=== PATIENT | male | born 1995 | race Caucasian/White ===

== ENCOUNTER 2018-04-19 16:41 | Observation (INO) | payer OTHER ==
[2018-04-19 17:16] LABS: Glucose,Whole Blood 85 mg/dL (75-99)
--- NOTE | 2018-04-19 18:38 | ED ---
General Adult HPI - General Chief complaint: Altered Mental Status Stated complaint: Mental Health Time Seen by Provider: 04/19/18 16:55 Source: RN/MD, EMS, RN notes reviewed Mode of arrival: EMS Limitations: altered mental status - History of Present Illness Initial comments: 23-year-old male presents to the emergency department for a chief complaint of altered mental status x 1 day. Patient was transferred here from [facility]. Patient's grandmother states that he went camping all weekend and was seemingly fine. She states he woke up today and also seemed fine. Patient's grandmother states that his sister started to notice he was slurring his words and they became concerned and brought him to the hospital. At [facility], chest x-ray and CT brain was normal. White count was elevated at 15. Lactic within normal limits at 1.8. Blood culture sent. Urine was positive for cannabinoids and TCAs. Patient takes Zoloft at home. Urine looks clear. Glucose 85. Patient unable to answer questions at this time but is responsive to his name as well as pain. Patient has no other complaints at this time including shortness of breath, chest pain, abdominal pain, nausea or vomiting, headache, or visual changes. - Related Data Home Medications Medication Instructions Recorded Confirmed No Known Home Medications 04/19/18 04/19/18 Allergies Allergy/AdvReac Type Severity Reaction Status Date / Time amoxicillin [Amoxicillin] Allergy Anaphylaxis Verified 08/07/16 21:50 Review of Systems ROS Statement: Those systems with pertinent positive or pertinent negative responses have been documented in the HPI. ROS Other: All systems not noted in ROS Statement are negative. Past Medical History Additional Past Medical History / Comment(s): right hand fracture X3. History of Any Multi-Drug Resistant Organisms: None Reported Past Surgical History: Appendectomy, Orthopedic Surgery Additional Past Surgical History / Comment(s): oral surgery Past Psychological History: ADD/ADHD Smoking Status: Current every day smoker Past Alcohol Use History: Occasional Past Drug Use History: Marijuana General Exam Limitations: altered mental status General appearance: in no apparent distress Head exam: Present: atraumatic, normocephalic, normal inspection Eye exam: Present: PERRL, EOMI. Absent: scleral icterus, conjunctival injection , periorbital swelling, periorbital tenderness ENT exam: Present: normal exam, mucous membranes moist Respiratory exam: Present: normal lung sounds bilaterally. Absent: respiratory distress, wheezes, rales, rhonchi, stridor Cardiovascular Exam: Present: regular rate, normal rhythm, normal heart sounds. Absent: systolic murmur, diastolic murmur, rubs, gallop, clicks GI/Abdominal exam: Present: soft, normal bowel sounds. Absent: distended, tenderness, guarding, rebound, rigid Neurological exam: Present: altered (patient responds to pain and his name but does not communicate back) Course Vital Signs 04/19/18 16:56 Temperature 98.3 F Pulse Rate 115 H Respiratory 16 Rate Blood Pressure 141/90 O2 Sat by Pulse 99 Oximetry Medical Decision Making - Medical Decision Making 23-year-old male presents to the emergency department for a chief complaint of altered mental status times one day. According to RN, grandmother states that he was camping all weekend and seemed fine. She states he seemed fine this morning but they started noticing he was slurring his words so they took him to [facility]. [facility] did a medical workup on him. Urine was positive for cannabinoids and TCAs. Patient has a white count of 15. Chest x-ray and urinalysis negative. Psych was consulted but did not feel comfortable evaluating him and altered mental status. Patient will be admitted to Dr. Orlando for further workup and management. - Lab Data Lab Results 04/19/18 Range/Units 17:06 POC Glucose (mg/dL) 85 (75-99) mg/dL POC Glu Senior Lead Project Manager ID Bailey Cano Disposition Clinical Impression: Altered mental status Disposition: ADMITTED IP TO THIS HOSP Condition: Good Instructions: Altered Mental Status (ED) Is patient prescribed a controlled substance at d/c from ED?: No Referrals: Oh Orlando MD [Primary Care Provider] - 1-2 days Time of Disposition: 20:53
[2018-04-19] MEDS ORDERED: NALOXONE 0.4 MG/ML 1 ML VIAL IV PRN (20:54)
[2018-04-19] MEDS: SODIUM CHLORIDE 0.9% 1,000 ML IV SCH (21:17)
[2018-04-19] MEDS ORDERED: HALOPERIDOL LACTATE 5 MG/ML 1 ML VIAL IM PRN (23:22)
[2018-04-19 23:41] VITALS: BMI 23.4
[2018-04-20] MEDS: SODIUM CHLORIDE 0.9% 1,000 ML IV SCH ×2 (08:06→19:28)
--- NOTE | 2018-04-20 15:04 | PN ---
PROGRESS NOTE DATE OF SERVICE: 04/20/2018 CHIEF COMPLAINT: Altered mental status and overdose with major depression and suicidal personality. HISTORY OF PRESENT ILLNESS: This gentleman is now awake, alert, and admits to having taken Zoloft and Vistaril. PHYSICAL EXAM: Vital signs are normal. Chest is clear. Cardiac exam is normal. Abdomen is soft, nontender. IMPRESSION: 1. Major depression. 2. Suicidal personality. 3. Drug overdose. PLAN: Continue suicide precautions and await recommendations from psychiatry. MMODL / IJN: [id number] /
--- NOTE | 2018-04-20 15:13 | HP ---
HISTORY AND PHYSICAL CHIEF COMPLAINT: Altered mental status, overdose, lethargy and major depression. HISTORY OF PRESENT ILLNESS: This 23-year-old male was released from [facility] about 2 weeks ago after a suicide attempt. He then was taken on the day of admission here to [facility] in the ER where he came in with lethargy, confusion, agitation and was felt that this was related to drug ingestion. He apparently had was on Vistaril and Zoloft and may have ingested these. Because there is no psychiatric service at [facility], he was transferred here. He was admitted for suicide watch, psychiatric evaluation and medical stability after the overdose. REVIEW OF SYSTEMS: Is not reliably obtained. Past medical history, family history, personal and social histories are not reliably obtained. He is known to be allergic to AMOXICILLIN. Remainder of his history is unremarkable. He does smoke. PHYSICAL EXAM: Blood pressure 118/68, pulse of 98,respirations of 32 and he is afebrile. In general, appeared to be well-developed, well-nourished, in no acute distress but he was agitated. Skin was very hot and dry. Head, ears, eyes, nose, mouth, and throat were normal except for dry mucous membranes. Neck was supple. Pupils equal, round, reactive and gaze is conjugate. Chest is clear. Cardiac exam demonstrated tachycardia with no murmurs. The abdomen is flat, soft, nontender without visceromegaly or masses. Bowel sounds present. Extremities are normal. Neurologically, other than the lethargy and agitation, he is intact. IMPRESSION: 1. Mental status changes. 2. Drug ingestion overdose. 3. Major depression. 4. History of suicidal attempt. PLAN: 1. Bed rest. 2. IV fluids. 3. Suicide precautions. 4. Psych consult. MMODL / IJN: [id number] /
[2018-04-20] MEDS ORDERED: hydrOXYzine PAMOATE 25 MG CAP PO SCH (16:00)
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
[2018-04-20] MEDS: FAMOTIDINE 20 MG TAB PO SCH (20:07)
[2018-04-20] MEDS ORDERED: traZODone HCL 50 MG TAB PO SCH (21:00)
[2018-04-21] MEDS: SODIUM CHLORIDE 0.9% 1,000 ML IV SCH ×2 (05:37→13:45)
[2018-04-21 05:44] VITALS: BP 117/75; PULSE 76; RESP 16; TEMP 98.6
[2018-04-21] MEDS ORDERED: SERTRALINE 50 MG TAB PO SCH (09:00)
[2018-04-21] MEDS: FAMOTIDINE 20 MG TAB PO SCH (09:43)
--- NOTE | 2018-04-21 16:47 | DS ---
DISCHARGE SUMMARY CHIEF COMPLAINT: Major depression and suicide attempt with aggressive behavior. HISTORY OF PRESENT ILLNESS AND PHYSICAL EXAM: Details of this man's history and physical can be found in the initial workup. LABORATORY STUDIES: While he was in a hospital he had laboratory studies, details of which can be found in the laboratory section of his chart. COURSE IN HOSPITAL: After admission he was placed on bedrest, started on intravenous fluids and was placed on suicide precautions. He was seen by Psychiatry who recommended that he be committed and he will be transferred to [facility]. FINAL DIAGNOSES: 1. Drug ingestion overdose. 2. Major depression. 3. Aggressive personality disorder. OPERATIONS: None. CONSULTATIONS: Psychiatry. He is improved. MMODL / IJN: [id number] /
== END 2018-04-21 18:15 ==
LOC: EC 16:41 → 5MS5E 20:54
PROVIDERS: ADMIT Family Medicine; ATTEND Family Medicine
DX: T43.592A Poisoning by other antipsychotics and neuroleptics, intentional self-harm, initial encounter (principal); T43.222A Poisoning by selective serotonin reuptake inhibitors, intentional self-harm, initial encounter; F32.9 Major depressive disorder, single episode, unspecified; F60.3 Borderline personality disorder; R41.82 Altered mental status, unspecified; D72.829 Elevated white blood cell count, unspecified; F90.9 Attention-deficit hyperactivity disorder, unspecified type; Z91.5 Personal history of self-harm; Z72.89 Other problems related to lifestyle; F17.200 Nicotine dependence, unspecified, uncomplicated; Z79.899 Other long term (current) drug therapy; Z88.0 Allergy status to penicillin; Z87.81 Personal history of (healed) traumatic fracture
CPT/HCPCS: 99285 ×2; 36415; G0378 ×3

== ENCOUNTER 2018-09-07 00:53 | Inpatient (IN) | payer MEDICAID ==
[2018-09-07] MEDS ORDERED: MAGNESIUM HYDROXIDE 2,400 MG/10 ML CUP PO PRN (01:29)
[2018-09-07] MEDS ORDERED: ZIPRASIDONE 20 MG VIAL IM PRN (01:29)
[2018-09-07] MEDS ORDERED: MAG HYDROX/AL HYDROX/SIMETH 30 ML CUP PO PRN (01:29)
[2018-09-07 03:29] VITALS: BMI 25.0
[2018-09-07] MEDS ORDERED: PNEUMOCOCCAL VACC-PNEUMOVAX 23 25 MCG/0.5 ML VIAL IM ONE (09:00)
[2018-09-07] MEDS ORDERED: NICOTINE 21MG/24HR PATCH TRANSDERM SCH (09:00)
[2018-09-07 11:20] LABS: Basophils % (A) 0 %; Eosinophils # (A) 0.2 k/uL (0-0.7); Eosinophils % (A) 3 %; HCT 45.7 % (39.0-53.0); HGB 14.2 gm/dL (13.0-17.5); Lymphocytes # (A) 1.5 k/uL (1.0-4.8); Lymphocytes % (A) 17 %; MCH 29.7 pg (25.0-35.0); MCV 95.7 fL (80.0-100.0); Monocytes # (A) 0.3 k/uL (0-1.0); Monocytes % (A) 4 %; Neutrophils # (A) 6.5 k/uL (1.3-7.7); Neutrophils % (A) 76 %; Platelet Count 271 k/uL (150-450); RBC 4.77 m/uL (4.30-5.90); RDW 13.5 % (11.5-15.5); WBC 8.6 k/uL (3.8-10.6)
[2018-09-07 11:48] LABS: ALT 34 U/L (21-72); AST 20 U/L (17-59); Albumin 4.5 g/dL (3.5-5.0); Alkaline Phosphatase 54 U/L (38-126); Anion Gap 8 mmol/L; Blood Urea Nitrogen 13 mg/dL (9-20); Calcium 9.3 mg/dL (8.4-10.2); Carbon Dioxide 27 mmol/L (22-30); Chloride 105 mmol/L (98-107); Cholesterol 216 mg/dL (<200); Glucose 82 mg/dL (74-99); HDL Cholesterol 56 mg/dL (40-60); LDL Cholesterol,Calculated 133 mg/dL (0-99); Potassium 4.9 mmol/L (3.5-5.1); Sodium 140 mmol/L (137-145); Total Bilirubin 0.3 mg/dL (0.2-1.3); Total Protein 7.7 g/dL (6.3-8.2); Triglycerides 134 mg/dL (<150)
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
[2018-09-07] MEDS: LORazepam 1 MG TAB PO PRN (17:23)
[2018-09-07 19:31] LABS: Hemoglobin A1C 5.2 % (4.0-6.0)
[2018-09-07] MEDS ORDERED: lamoTRIgine 25 MG TAB PO SCH (21:00)
[2018-09-07] MEDS ORDERED: PALIPERIDONE 3 MG TAB.ER.24 PO SCH (21:00)
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
[2018-09-08] MEDS: LORazepam 1 MG TAB PO PRN (18:40)
--- NOTE | 2018-09-08 19:08 | CONS ---
CONSULTATION CHIEF COMPLAINT: Major depression, status post overdose. HISTORY OF PRESENT ILLNESS: This gentleman is awake, stable and doing well. He has not seen Psychiatry yet. He is anxious to get back on his medications. REVIEW OF SYSTEMS: He is having no problems with dizziness, problems with vision hearing, chest pain, cough, shortness of breath, etc. He has had no abdominal pain, nausea, vomiting, etc. Past medical history, family history and personal and social histories are otherwise unremarkable. ALLERGIES: He is allergic to PENICILLIN. MEDICATIONS: He previously had been on Prozac 40 mg once a day and Trazodone 50 mg HS 1. PHYSICAL EXAMINATION: Blood pressure is 118/70, pulse of 88, and he is afebrile. In general, appeared to be well developed, well nourished, no acute distress. Skin color is normal. Skin is warm and dry. Lymph nodes are not enlarged. Head, ears, eyes, nose, mouth, and throat are normal. Neck veins not distended. Thyroid is not enlarged. Chest is clear. Cardiac exam is normal. Abdomen is soft, nontender. Extremities are normal. Neurologically, he is intact. IMPRESSION: Major depression. PLAN: Continue with his psych evaluation and treatment and he will follow up in the office when he is discharged. MMODL / IJN: [id number] /
[2018-09-08] MEDS ORDERED: PALIPERIDONE 3 MG TAB.ER.24 PO SCH (21:00)
[2018-09-08] MEDS ORDERED: PALIPERIDONE 6 MG TAB.ER.24 PO SCH (21:00)
[2018-09-08] MEDS ORDERED: lamoTRIgine 25 MG TAB PO SCH ×2 (21:00)
[2018-09-08] MEDS: ACETAMINOPHEN TAB 325 MG TAB PO PRN (22:53)
[2018-09-08] MEDS ORDERED: LORazepam 1 MG TAB PO STA (23:44)
[2018-09-08] MEDS ORDERED: IBUPROFEN 400 MG TAB PO STA (23:45)
[2018-09-09] MEDS: buPROPion SR 150 MG TABLET.ER PO SCH (08:34)
[2018-09-09] MEDS: LORazepam 1 MG TAB PO PRN ×2 (08:49→20:22)
[2018-09-09] MEDS: ACETAMINOPHEN TAB 325 MG TAB PO PRN (12:10)
[2018-09-09] MEDS ORDERED: PALIPERIDONE IM 234 MG/1.5 ML SYG IM STA (13:00)
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
[2018-09-09] MEDS ORDERED: lamoTRIgine 100 MG TAB PO SCH (21:00)
[2018-09-09] MEDS ORDERED: PALIPERIDONE 6 MG TAB.ER.24 PO SCH (21:00)
[2018-09-10 07:02] VITALS: BP 117/74; PULSE 122; RESP 18; TEMP 98.1
[2018-09-10] MEDS: buPROPion SR 150 MG TABLET.ER PO SCH (08:03)
[2018-09-10 11:22] LABS: Basophils % (A) 0 %; Eosinophils # (A) 0.1 k/uL (0-0.7); Eosinophils % (A) 1 %; HCT 43.1 % (39.0-53.0); HGB 13.6 gm/dL (13.0-17.5); Lymphocytes % (A) 15 %; MCH 29.3 pg (25.0-35.0); MCHC 31.5 g/dL (31.0-37.0); MCV 92.9 fL (80.0-100.0); Mean Platelet Volume 6.4; Monocytes # (A) 0.8 k/uL (0-1.0); Monocytes % (A) 6 %; Neutrophils # (A) 9.6 k/uL (1.3-7.7); Neutrophils % (A) 75 %; Platelet Count 265 k/uL (150-450); RBC 4.63 m/uL (4.30-5.90); RDW 13.3 % (11.5-15.5); WBC 12.8 k/uL (3.8-10.6)
[2018-09-10 11:51] LABS: ALT 24 U/L (21-72); AST 21 U/L (17-59); Albumin 4.9 g/dL (3.5-5.0); Alkaline Phosphatase 56 U/L (38-126); Anion Gap 11 mmol/L; Blood Urea Nitrogen 12 mg/dL (9-20); Calcium 9.4 mg/dL (8.4-10.2); Carbon Dioxide 28 mmol/L (22-30); Chloride 104 mmol/L (98-107); Glucose 61 mg/dL (74-99); Potassium 4.6 mmol/L (3.5-5.1); Sodium 143 mmol/L (137-145); Total Bilirubin 0.3 mg/dL (0.2-1.3); Total Protein 8.1 g/dL (6.3-8.2)
[2018-09-10] MEDS ORDERED: PALIPERIDONE IM 234 MG/1.5 ML SYG IM STA (11:58)
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
== END 2018-09-10 12:48 | disposition home or self-care (01) | DRG 885 ==
LOC: 3MHU 01:17
PROVIDERS: ADMIT Psychiatry & Neurology Psychiatry; ATTEND Psychiatry & Neurology Psychiatry
DX: F31.9 Bipolar disorder, unspecified (principal); F17.200 Nicotine dependence, unspecified, uncomplicated; F90.9 Attention-deficit hyperactivity disorder, unspecified type; Z62.810 Personal history of physical and sexual abuse in childhood; Z90.49 Acquired absence of other specified parts of digestive tract; Z91.19 Patient's noncompliance with other medical treatment and regimen; Z91.410 Personal history of adult physical and sexual abuse; Z91.5 Personal history of self-harm; Z88.0 Allergy status to penicillin
CPT/HCPCS: 80053; 80061; 83036; 84443; 85025; 90732

== ENCOUNTER 2020-09-14 09:51 | Day surgery (SDC) | payer OTHER ==
[2020-09-10 15:28] VITALS: BMI 29.0
[~2020-09-14 09:51] MED LIST: LACTATED RINGERS 1,000 ML IV SCH; LIDOCAINE 1% (10MG/ML) FOR IV START INTRADERMA PRN
[2020-09-14 11:03] VITALS: TEMP 98.2
[2020-09-14] MEDS ORDERED: LIDOCAINE 1% INJ 10MG/ML (20 ML MDV) ONE (11:46)
[2020-09-14] MEDS ORDERED: PROPOFOL 10 MG/ML 20 ML VIAL IV ONE (11:46)
--- NOTE | 2020-09-14 11:55 | P.GSHP ---
History of Present Illness H&P Date: 09/14/20 Chief Complaint: GERD, GI bleed The 25-year-old male with complaints of GERD GI bleed. Patient rents today for EGD colonoscopy. Past Medical History Past Medical History: Asthma, GERD/Reflux, Myocardial Infarction ([place]) Additional Past Medical History / Comment(s): right hand fracture X3. n/v decreased appetite and buring sensation lower to mid abdomen. exercise induced asthma. Last Myocardial Infarction Date:: 2015 History of Any Multi-Drug Resistant Organisms: None Reported Past Surgical History: Appendectomy, Orthopedic Surgery Additional Past Surgical History / Comment(s): oral surgery, right hand surgery and has "a metal plate and 54 screws " in it. Past Anesthesia/Blood Transfusion Reactions: Previous Problems w/ Anesthesia Additional Past Anesthesia/Blood Transfusion Reaction / Comment(s): Patients mother states he had a reaction to anesthesia and had to continue to come back to hospital for an IV. Smoking Status: Current every day smoker - Past Family History Mother History Unknown: Yes Additional Family Medical History / Comment(s): Mother states depression, bipolar disorder, and asthma. Sister(s) History Unknown: Yes Additional Family Medical History / Comment(s): Mother states, migraines, depression, and ADHD. Medications and Allergies Home Medications Medication Instructions Recorded Confirmed Type Omeprazole [PriLOSEC] 20 mg PO [id number] 09/10/20 09/10/20 History Allergies Allergy/AdvReac Type Severity Reaction Status Date / Time amoxicillin [Amoxicillin] Allergy Anaphylaxis Verified 09/14/20 10:55 Surgical - Exam Vital Signs Temp Pulse Resp BP Pulse Ox 98.2 F 77 16 125/70 100 09/14/20 11:01 09/14/20 11:01 09/14/20 11:01 09/14/20 11:01 09/14/20 11:01 - General well developed, well nourished, no distress - Eyes PERRL - ENT normal pinna - Neck no masses - Respiratory normal expansion - Cardiovascular Rhythm: regular - Abdomen Abdomen: soft, non tender Assessment and Plan Assessment: GERD, GI bleed. We'll perform colonoscopy EGD.
--- NOTE | 2020-09-14 12:09 | P.OP ---
Date of Procedure: 09/14/20 Preoperative Diagnosis: GERD GI bleed Postoperative Diagnosis: Antral gastritis Hiatal hernia Esophagitis Procedure(s) Performed: EGD Colonoscopy Anesthesia: MAC Surgeon: Alphonse Mchugh Pathology: other (Antrum, esophagus) Condition: stable Disposition: PACU Description of Procedure: The patient's placed on the endoscopy table lateral position. He received IV sedation. The gastroscope placed oropharynx passed in the esophagus into the stomach. Scope was placed through the pylorus. The first and second portion of the duodenum appeared normal. The scope was then brought back the antrum and this was mildly inflamed. A biopsies performed. The scope was retroflexed and the remainder of the stomach appeared normal. Patient had a moderate size hiatal hernia. The GE junction was at 38 cm. The distal esophagus inflamed and a biopsies performed. The proximal esophagus appeared normal. Scope withdrawn for patient. Next digital rectal exam was performed which revealed no abnormalities. The prostate was symmetrical without nodules. Flexible colonoscope was then placed in the patient's anus and passed throughout the entire colon. The ileocecal valve was visualized. The cecum, ascending, transverse, descending and sigmoid colon were normal. The rectum was normal as well. There were no masses, polyps or diverticula noted in the entire colon. There is no evidence of lower GI bleed.
[2020-09-14 12:31] VITALS: BP 109/77; PULSE 86; RESP 14
== END 2020-09-14 12:56 | disposition home or self-care (01) ==
LOC: ORWHC2ENDO 09:51
PROVIDERS: ATTEND Surgery
DX: K29.50 Unspecified chronic gastritis without bleeding (principal); K44.9 Diaphragmatic hernia without obstruction or gangrene; K92.2 Gastrointestinal hemorrhage, unspecified; K21.9 Gastro-esophageal reflux disease without esophagitis; I25.2 Old myocardial infarction; J45.990 Exercise induced bronchospasm; Z98.890 Other specified postprocedural states; F17.200 Nicotine dependence, unspecified, uncomplicated; Z81.8 Family history of other mental and behavioral disorders; K21.00 Gastro-esophageal reflux disease with esophagitis, without bleeding; Z82.5 Family history of asthma and other chronic lower respiratory diseases; Z79.899 Other long term (current) drug therapy; Z88.0 Allergy status to penicillin
CPT/HCPCS: 88305; 45378; 43239; J2001; J2704

== ENCOUNTER → 2020-10-09 | Outpatient (CLI) | payer OTHER ==
[2020-10-09 17:13] LABS: Basophils % (A) 0 %; Eosinophils # (A) 0.1 k/uL (0-0.7); Eosinophils % (A) 1 %; HCT 41.3 % (39.0-53.0); Lymphocytes # (A) 2.3 k/uL (1.0-4.8); Lymphocytes % (A) 27 %; MCH 31.3 pg (25.0-35.0); MCHC 33.9 g/dL (31.0-37.0); MCV 92.4 fL (80.0-100.0); Mean Platelet Volume 7.3; Monocytes # (A) 0.4 k/uL (0-1.0); Monocytes % (A) 4 %; Neutrophils # (A) 5.5 k/uL (1.3-7.7); Neutrophils % (A) 65 %; Platelet Count 237 k/uL (150-450); RBC 4.47 m/uL (4.30-5.90); WBC 8.4 k/uL (3.8-10.6)
== END | disposition home or self-care (01) ==
LOC: LABPAT 15:56
PROVIDERS: ATTEND Surgery
DX: Z01.818 Encounter for other preprocedural examination (principal)
CPT/HCPCS: 85025

== ENCOUNTER 2020-10-17 07:33 | Inpatient (IN) | payer OTHER ==
[~2020-10-17 07:33] MED LIST changes: +ACETAMINOPHEN TAB 500 MG TAB PO PRN; +CLINDAMYCIN 900 MG in DEXTROSE 5% IN WATER 50 ML IVPB PRN; +DEXAMETHASONE SOD PHOSPHATE 4 MG/ML 1 ML VIAL IV ONE; +GENTAMICIN 380 MG in SODIUM CHLORIDE 0.9% 100 ML IVPB PRN; +HEPARIN SODIUM,PORCINE 5,000 UNIT/ML 1 ML VIAL SQ PRN; -LACTATED RINGERS 1,000 ML IV SCH; +ONDANSETRON 4 MG/2 ML VIAL IVP ONE
[2020-10-17] MEDS: LACTATED RINGERS 1,000 ML IV SCH (08:14)
[2020-10-17] MEDS ORDERED: MIDAZOLAM 2 MG/2 ML VIAL IVP ONE (08:35)
--- NOTE | 2020-10-17 09:14 | P.GSHP ---
History of Present Illness H&P Date: 10/17/20 Chief Complaint: GERD Is a 25 row male history of GERD.The patient has had long-standing problems with reflux esophagitis. The patient underwent recent EGD is found have evidence of esophagitis. Patient has been well informed on the procedure of laparoscopic Charmaine fundoplication. The patient is aware the risk of the conversion to the open procedure, risk of injury to the stomach, liver and spleen. The patient is also a risk of recurrent GERD and dysphagia symptoms. The patient understands there is a postoperative diet of full liquids for 2 weeks after surgery. Past Medical History Past Medical History: Asthma, GERD/Reflux, Myocardial Infarction ([place]) Additional Past Medical History / Comment(s): right hand fracture X3. hiatal hernia. exercise induced asthma. Last Myocardial Infarction Date:: 2015 History of Any Multi-Drug Resistant Organisms: None Reported Past Surgical History: Appendectomy, Orthopedic Surgery Additional Past Surgical History / Comment(s): oral surgery, right hand surgery and has "a metal plate and 54 screws " in it. colonoscopy/egd Past Anesthesia/Blood Transfusion Reactions: Previous Problems w/ Anesthesia Additional Past Anesthesia/Blood Transfusion Reaction / Comment(s): Patients mother states he had a reaction to anesthesia and had to continue to come back to hospital for an IV. Smoking Status: Current every day smoker - Past Family History Mother History Unknown: Yes Additional Family Medical History / Comment(s): Mother states depression, bipolar disorder, and asthma. Sister(s) History Unknown: Yes Additional Family Medical History / Comment(s): Mother states, migraines, depression, and ADHD. Medications and Allergies Home Medications Medication Instructions Recorded Confirmed Type No Known Home Medications 10/09/20 10/09/20 History Allergies Allergy/AdvReac Type Severity Reaction Status Date / Time amoxicillin [Amoxicillin] Allergy Anaphylaxis Verified 10/09/20 13:01 Surgical - Exam Vital Signs Temp Pulse Resp BP Pulse Ox 97.8 F 81 16 116/69 99 10/17/20 08:04 10/17/20 08:04 10/17/20 08:04 10/17/20 08:04 10/17/20 08:04 - General well developed, well nourished, no distress - Eyes PERRL - ENT normal pinna - Neck no masses - Respiratory normal expansion - Cardiovascular Rhythm: regular - Abdomen Abdomen: soft, non tender Assessment and Plan Assessment: GERD. We'll perform laparoscopic Charmaine fundoplication.
[2020-10-17] MEDS ORDERED: LIDOCAINE 1% INJ 10MG/ML (20 ML MDV) ONE (09:34)
[2020-10-17] MEDS ORDERED: fentaNYL (PF) 50 MCG/ML 2 ML AMP ONE (09:34)
[2020-10-17] MEDS ORDERED: NEOSTIGMINE 1 MG/ML 10 ML VIAL ONE (09:34)
[2020-10-17] MEDS ORDERED: GLYCOPYRROLATE 0.2 MG/ML 2 ML VIAL ONE (09:34)
[2020-10-17] MEDS ORDERED: PROPOFOL 10 MG/ML 20 ML VIAL IV ONE (09:34)
[2020-10-17] MEDS ORDERED: MIDAZOLAM 2 MG/2 ML VIAL ONE (09:34)
[2020-10-17] MEDS ORDERED: KETOROLAC 15 MG/ML 1 ML VIAL ONE (09:34)
[2020-10-17] MEDS ORDERED: SUCCINYLCHOLINE CHLORIDE 100 MG/5 ML SYR IV ONE (09:34)
[2020-10-17] MEDS ORDERED: KETAMINE 10 MG/ML 20 ML VIAL ONE (09:34)
[2020-10-17] MEDS ORDERED: ROCURONIUM 10 MG/ML (10 ML VIAL) IV ONE (09:34)
[2020-10-17] MEDS ORDERED: BUPIVACAINE (PF) 0.25% 30 ML VIAL SQ ONE (09:59)
[2020-10-17] MEDS ORDERED: ONDANSETRON 4 MG/2 ML VIAL IVP PRN (10:41)
--- NOTE | 2020-10-17 10:41 | P.OP ---
Date of Procedure: 10/17/20 Preoperative Diagnosis: GERD Postoperative Diagnosis: GERD Procedure(s) Performed: Laparoscopic Charmaine fundal plication Anesthesia: MANDA Surgeon: Alphonse Mchugh Estimated Blood Loss (ml): 5 Pathology: none sent Condition: stable Disposition: PACU Description of Procedure: HThe patient was placed on the operating table in the supine position. The patient received general anesthesia. And was placed in dorsal lithotomy position. The patient was prepped and draped in the usual sterile fashion. The skin incision sites were anesthetized with 1% local Xylocaine. The skin was incised in the left periumbilical area and then using a blade less 5 mm trocar under direct visualization panel cavity was entered. After adequate insufflation the laparoscope was then placed into the peritoneal cavity. Next a 5 mm trochars placed in the right epigastric position. Another 5 millimeter trocar the right lateral position. Another 5 millimeter trocar in the left lateral position a 5 mm trocar is placed in the left epigastric position. And then the initial 5 mm trocar was exchanged for a 10 mm trocar. The left lateral lobe liver was retracted. The hernia was seen. The crural defect was then dissected using the Harmonic scissors device. A 360 crural dissection was performed the esophagus stomach was reduced back into the peritoneal Cavity. The crural defect was then closed using 2-0 Ethibond suture. Next the fundus of the stomach was mobilized using the [place] scissors device. and then a 58- [place] bougie dilator was placed oropharynx passed into the esophagus and stomach the fundal plication wrap was then performed by grasping the fundus post eriorly and bringing it around the esophagus and stomach fundoplication was then performed using 2-0 Ethibond suture. Care was taken that the fundal location rested over top of the intra-abdominal esophagus. There was no injury seen to the stomach or esophagus. The dilator was then withdrawn. The abdomen was irrigated there is no bleeding seen. The trochars were then withdrawn and then skin incision sites were closed using 3-0 Monocryl suture Steri-Strips are applied. Patient thought procedure well and sent to recovery room in stable condition.
[2020-10-17] MEDS: HYDROmorphone 0.5 MG/0.5 ML SYRINGE IVP PRN ×3 (11:10→20:29)
[2020-10-17] MEDS ORDERED: ONDANSETRON 4 MG/2 ML VIAL IVP ONE (11:21)
[2020-10-17 14:35] VITALS: BMI 29.8
--- NOTE | 2020-10-17 15:39 | FL ---
EXAMINATION TYPE: FL esophagus cervic/pharynx DATE OF EXAM: 10/17/2020 COMPARISON: None HISTORY: Post Jae fundoplication TECHNIQUE: Single contrast technique is utilized to evaluate the gastroesophageal junction FINDINGS: There is a moderately large amount of free air present. Gastroesophageal junction opens without significant stenosis. No extravasation of contrast is evident . Fluoroscopy time: 52 seconds Images: 13 IMPRESSION: 1. No extravasation of contrast post Jae fundoplication. 2. Moderate free air
[2020-10-17] MEDS: D5-0.45% NACL WITH KCL 20MEQ/L 1,000 ML IV SCH ×3 (15:52→23:39)
[2020-10-17] MEDS: METOCLOPRAMIDE 5 MG/ML 2 ML VIAL IVP SCH ×3 (16:05→23:17)
[2020-10-17] MEDS: HYDROmorphone 1 MG/ML 1 ML SYRINGE IVP PRN (23:17)
[2020-10-18] MEDS: HYDROmorphone 1 MG/ML 1 ML SYRINGE IVP PRN ×2 (03:26→07:31)
[2020-10-18] MEDS: METOCLOPRAMIDE 5 MG/ML 2 ML VIAL IVP SCH ×2 (05:50→12:32)
[2020-10-18] MEDS: LACTATED RINGERS 1,000 ML IV SCH (07:15)
[2020-10-18 07:35] VITALS: BP 116/72; PULSE 81; RESP 16; TEMP 98.4
[2020-10-18] MEDS ORDERED: ENOXAPARIN 40 MG/0.4 ML SYRINGE SQ SCH (09:00)
[2020-10-18 09:32] LABS: Basophils % (A) 0 %; Eosinophils % (A) 0 %; HCT 44.1 % (39.0-53.0); HGB 14.8 gm/dL (13.0-17.5); Lymphocytes # (A) 1.8 k/uL (1.0-4.8); Lymphocytes % (A) 13 %; MCH 31.3 pg (25.0-35.0); MCHC 33.6 g/dL (31.0-37.0); MCV 93.2 fL (80.0-100.0); Mean Platelet Volume 7.5; Monocytes # (A) 0.7 k/uL (0-1.0); Monocytes % (A) 5 %; Neutrophils # (A) 10.8 k/uL (1.3-7.7); Neutrophils % (A) 80 %; Platelet Count 254 k/uL (150-450); RBC 4.73 m/uL (4.30-5.90); RDW 13.1 % (11.5-15.5); WBC 13.5 k/uL (3.8-10.6)
[2020-10-18] MEDS ORDERED: HYDROcodone/APAP 5-325MG 1 EACH TAB PO PRN (10:00)
[2020-10-18 11:18] LABS: ALT 29 U/L (4-49); AST 29 U/L (17-59); African American GFR (CKD) >90 (>60 ml/min/1.73 sqM); Albumin 4.2 g/dL (3.5-5.0); Albumin/Globulin Ratio 1.5; Alkaline Phosphatase 60 U/L (38-126); Anion Gap 6 mmol/L; Blood Urea Nitrogen 5 mg/dL (9-20); Calcium 8.9 mg/dL (8.4-10.2); Carbon Dioxide 27 mmol/L (22-30); Chloride 105 mmol/L (98-107); Globulin 2.8 g/dL; Glucose 94 mg/dL (74-99); Non-African American GFR(CKD) >90 (>60 ml/min/1.73 sqM); Potassium 4.6 mmol/L (3.5-5.1); Sodium 138 mmol/L (137-145); Total Bilirubin 0.4 mg/dL (0.2-1.3)
--- NOTE | 2020-10-18 13:11 | P.DS ---
Providers Date of admission: 10/17/20 07:33 Expected date of discharge: 10/18/20 Attending physician: Alphonse Mchugh Primary care physician: [facility] Course: Discharge diagnosis 1. GERD status post laparoscopic Charmaine fundoplication Hospital course This is a 25-year-old male with a history of GERD and long-standing history of reflux esophagitis. Patient is status post laparoscopic Charmaine fundoplication for GERD. Patient tolerated surgery well. He's tolerating the Charmaine clear liquid diet. He had esophagram completed which shows no extravasation of contrast post Charmaine fundoplication. And moderate free air. Patient reports that his pain is controlled. He is having bowel movements. He is up and ambulating. He is stable for discharge. Please refer to chart for any further details. Patient Condition at Discharge: Stable Plan - Discharge Summary Discharge Rx Participant: No New Discharge Prescriptions: New Docusate [Colace] 100 mg PO BID #30 capsule Hydrocodone/Acetaminophen [Garfield 5-325] 1 tab PO Q6HR PRN 3 Days #12 tab PRN Reason: Pain Discharge Medication List Docusate [Colace] 100 mg PO BID #30 capsule 10/18/20 [Rx] Hydrocodone/Acetaminophen [Garfield 5-325] 1 tab PO Q6HR PRN 3 Days #12 tab 10/18/20 [Rx] Follow up Appointment(s)/Referral(s): Alphonse Mchugh MD [STAFF PHYSICIAN] - 11/01/20 1:30 pm Patient Instructions/Handouts: Hydrocodone/Acetaminophen (By mouth), Laxative, Stool Softeners (By mouth), Gastroesophageal Reflux Disease (DC), Esophagitis (DC), Fundoplication in Adults (DC) Activity/Diet/Wound Care/Special Instructions: No driving while taking Garfield No lifting over 10 pounds You may shower. No soaking or tub baths for 2 weeks Very light activity until you are reevaluated at your follow up appointment with your surgeon Charmaine Diet Discharge Disposition: HOME SELF-CARE
== END 2020-10-18 13:06 | disposition home or self-care (01) | DRG 328 ==
LOC: 2ORMAIN 07:33 → 5NMEDONC 10:52
PROVIDERS: ADMIT Surgery; ATTEND Surgery
PROC: 0DV44ZZ Restriction of Esophagogastric Junction, Percutaneous Endoscopic Approach (ICD-10-PCS; principal; 2020-10-17 08:55)
DX: K21.00 Gastro-esophageal reflux disease with esophagitis, without bleeding (principal); F17.200 Nicotine dependence, unspecified, uncomplicated; J45.909 Unspecified asthma, uncomplicated; Z82.5 Family history of asthma and other chronic lower respiratory diseases; Z81.8 Family history of other mental and behavioral disorders; I25.2 Old myocardial infarction; Z88.0 Allergy status to penicillin
CPT/HCPCS: 74210; 80053; 85025

== ENCOUNTER 2020-11-26 12:03 | Emergency (ER) | payer OTHER ==
[2020-11-26 12:15] VITALS: TEMP 97.9
--- NOTE | 2020-11-26 13:12 | ED ---
General Adult HPI - General Source: patient, RN notes reviewed Mode of arrival: ambulatory Limitations: no limitations <William Forbes - Last Filed: 11/26/20 13:09> <Neel Ramirez - Last Filed: 11/26/20 14:47> - General Chief complaint: ENT Stated complaint: problem swallowing Time Seen by Provider: 11/26/20 12:30 - History of Present Illness Initial comments: This a 25 s-year-old male presents emergency Department chief complaint of difficulty swallowing. Patient states that he had a Jae fundoplication by Dr. Mchugh approximately 6 weeks ago. Patient states he initially had some issues that are just postsurgical but states that symptoms are worsening. He states he cannot eat any solid foods. Patient states that he did have his follow-up appointment in which she was told everything healed well. Patient states he is concerned something else is wrong. Patient states he has severe GERD prior to his surgery which is now improved and off his medications. (William Forbes) - Related Data Home Medications Medication Instructions Recorded Confirmed No Known Home Medications 11/26/20 11/26/20 Allergies Allergy/AdvReac Type Severity Reaction Status Date / Time amoxicillin [Amoxicillin] Allergy Anaphylaxis Verified 11/26/20 13:13 Review of Systems ROS Other: All systems not noted in ROS Statement are negative. <William Forbes - Last Filed: 11/26/20 13:09> ROS Other: All systems not noted in ROS Statement are negative. <Neel Ramirez - Last Filed: 11/26/20 14:47> ROS Statement: Those systems with pertinent positive or pertinent negative responses have been documented in the HPI. Past Medical History Past Medical History: Asthma, GERD/Reflux Additional Past Medical History / Comment(s): right hand fracture X3. hiatal hernia. exercise induced asthma. Last Myocardial Infarction Date:: 2015 History of Any Multi-Drug Resistant Organisms: None Reported Past Surgical History: Appendectomy, Hernia Repair, Orthopedic Surgery Additional Past Surgical History / Comment(s): oral surgery, right hand surgery and has "a metal plate and 54 screws " in it. colonoscopy/egd Past Anesthesia/Blood Transfusion Reactions: Previous Problems w/ Anesthesia Additional Past Anesthesia/Blood Transfusion Reaction / Comment(s): Patients mother states he had a reaction to anesthesia and had to continue to come back to hospital for an IV. Past Psychological History: ADD/ADHD, Anxiety, Depression, PTSD Smoking Status: Current every day smoker Past Alcohol Use History: Occasional Past Drug Use History: Marijuana - Past Family History Mother History Unknown: Yes Additional Family Medical History / Comment(s): Mother states depression, bipolar disorder, and asthma. Sister(s) History Unknown: Yes Additional Family Medical History / Comment(s): Mother states, migraines, depression, and ADHD. <William Forbes M - Last Filed: 11/26/20 13:09> General Exam Limitations: no limitations General appearance: alert, in no apparent distress Head exam: Present: atraumatic, normocephalic, normal inspection Eye exam: Present: normal appearance, PERRL, EOMI. Absent: scleral icterus, conjunctival injection, periorbital swelling ENT exam: Present: normal exam, normal oropharynx, mucous membranes moist Neck exam: Present: normal inspection, full ROM. Absent: tenderness, meningismus, lymphadenopathy Respiratory exam: Present: normal lung sounds bilaterally. Absent: respiratory distress, wheezes, rales, rhonchi, stridor Cardiovascular Exam: Present: regular rate, normal rhythm, normal heart sounds. Absent: systolic murmur, diastolic murmur, rubs, gallop, clicks GI/Abdominal exam: Present: soft, normal bowel sounds. Absent: distended, tenderness, guarding, rebound, rigid <William Forbes M - Last Filed: 11/26/20 13:09> Course Vital Signs 11/26/20 12:10 Temperature 97.9 F Pulse Rate 93 Respiratory 20 Rate Blood Pressure 131/80 O2 Sat by Pulse 100 Oximetry Medical Decision Making <Neel Ramirez - Last Filed: 11/26/20 14:47> - Medical Decision Making PA attestation: I, Dr. Neel Ramirez, personally saw and examined the patient. I have reviewed and agree with the resident/PA findings, including all diagnostic interpretations and treatment plans as written unless otherwise stated. I was present for the mathew portions of any procedures performed and inclusive time noted for any critical care statement. She was seen and evaluated bedside along with William Smith. Briefly patient is a 25-year-old male who had a Charmaine fundoplication performed [address] Mchugh. Patient has been having worsening dysphagia to more noticeably solids as opposed to solids. Barium swallow was obtained. Patient had a barium swallow review and paper that is replaced in his chart. There is mild relative narrowing at the GE junction. There also seems to be a recurrent small hiatal hernia extending above the wrap possibly contributed to the narrowing. These findings and patient's presentation was discussed with primary surgeon Dr. Mchugh requested that patient be given fluids and to follow-up with his office.Patient did not want IV fluids. He states he's been doing okay with clear liquids. 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 States that he will follow up with his surgeon. (Neel Ramirez) Disposition <William Forbes - Last Filed: 11/26/20 13:09> Is patient prescribed a controlled substance at d/c from ED?: No Time of Disposition: 14:47 <Neel Ramirez - Last Filed: 11/26/20 14:47> Clinical Impression: Dysphagia Disposition: HOME SELF-CARE Condition: Fair Instructions (If sedation given, give patient instructions): Dysphagia (ED) Referrals: Alphonse Mchugh MD [STAFF PHYSICIAN] - 1-2 days
[2020-11-26] MEDS ORDERED: SODIUM CHLORIDE 0.9% 1,000 ML IV STA (14:38)
[2020-11-26] MEDS ORDERED: ONDANSETRON 4 MG ODT STARTER PACK 2 TAB BTL PO STA (14:45)
[2020-11-26 14:47] VITALS: BP 121/80; PULSE 71; RESP 16
--- NOTE | 2020-11-26 15:06 | FL ---
EXAMINATION TYPE: FL barium swallow DATE OF EXAM: 11/26/2020 CLINICAL INDICATION: 25-year-old male difficulty swallowing status post Charmaine fundoplication perform ed on 10/17/2020. Nausea and vomiting. COMPARISON: 10/17/2020 Total Fluoroscopy Time: 2 minutes 57 seconds Total images: 45 FINDINGS: The swallowing mechanism is normal and hypopharyngeal anatomy is preserved. The cervical and thoracic portions have a normal course and caliber and normal motility. The mucosa i s normal and no persistent filling defect is encountered. There is a relative mild obstruction at the level of the GE junction. There appears to be a recurrent small hiatal hernia which seems to project above the fundoplication wrap best seen on the prone RUBIO imaging. Gastroesophageal reflux could not be elicited with Valsalva or positional maneuvers. IMPRESSION: Mild relative obstruction at the level of the GE junction. There appears to be a recurrent small hiat al hernia projecting above the Charmaine fundoplication wrap probably contributing to the narrowing at t his level.
== END 2020-11-26 14:51 | disposition home or self-care (01) ==
LOC: EC 12:03
DX: K22.2 Esophageal obstruction (principal); F17.200 Nicotine dependence, unspecified, uncomplicated; Z88.0 Allergy status to penicillin; Z87.19 Personal history of other diseases of the digestive system; Z98.890 Other specified postprocedural states
CPT/HCPCS: 74220; 99284; S0119

== ENCOUNTER 2021-08-04 09:14 | Emergency (ER) | payer OTHER ==
--- NOTE | 2021-08-04 09:39 | ED ---
URI HPI - General Chief Complaint: Upper Respiratory Infection Stated Complaint: ENT, congestion Time Seen by Provider: 08/04/21 09:30 Source: patient, RN notes reviewed Mode of arrival: ambulatory Limitations: no limitations - History of Present Illness Initial Comments: Patient is 26-year-old male presenting to ED for upper respiratory symptoms. Patient states that symptoms started 2 weeks prior which are weakness and fatigue cough congestion, fever and chills. Patient denies any nausea, vomiting, changes in oral intake bowel movements or urination. Patient states they have positive history of covered for months prior with similar symptoms. Patient reports increased wheezing and shortness of breath while lying down at night. patient reports not receiving vaccine, history of asthma and is a smoker. - Related Data Home Medications Medication Instructions Recorded Confirmed Phenyleph/Acetaminophn/Doxylam 1 cap PO Q4H PRN 08/04/21 08/04/21 [Vicks Dayquil-Nyquil Sinex Cap] Previous Rx's Medication Instructions Recorded Clarithromycin [Biaxin] 500 mg PO Q12HR #20 tablet 08/04/21 predniSONE 50 mg PO DAILY #5 tab 08/04/21 Allergies Allergy/AdvReac Type Severity Reaction Status Date / Time amoxicillin [Amoxicillin] Allergy Anaphylaxis Verified 08/04/21 10:04 Review of Systems ROS Statement: Those systems with pertinent positive or pertinent negative responses have been documented in the HPI. ROS Other: All systems not noted in ROS Statement are negative. Past Medical History Past Medical History: Asthma, GERD/Reflux Additional Past Medical History / Comment(s): right hand fracture X3. hiatal hernia. exercise induced asthma. Last Myocardial Infarction Date:: 2015 History of Any Multi-Drug Resistant Organisms: None Reported Past Surgical History: Appendectomy, Hernia Repair, Orthopedic Surgery Additional Past Surgical History / Comment(s): oral surgery, right hand surgery and has "a metal plate and 54 screws " in it. colonoscopy/egd Past Anesthesia/Blood Transfusion Reactions: Previous Problems w/ Anesthesia Additional Past Anesthesia/Blood Transfusion Reaction / Comment(s): Patients mother states he had a reaction to anesthesia and had to continue to come back to hospital for an IV. Past Psychological History: ADD/ADHD, Anxiety, Depression, PTSD Smoking Status: Current every day smoker Past Alcohol Use History: Occasional Past Drug Use History: Marijuana - Past Family History Mother History Unknown: Yes Additional Family Medical History / Comment(s): Mother states depression, bipolar disorder, and asthma. Sister(s) History Unknown: Yes Additional Family Medical History / Comment(s): Mother states, migraines, depression, and ADHD. General Exam Limitations: no limitations General appearance: alert, in no apparent distress Expanded Throat exam: tonsillar erythema (Erythematous posterior pharynx), other Respiratory exam: Present: normal lung sounds bilaterally. Absent: respiratory distress, wheezes, rales, rhonchi, stridor Cardiovascular Exam: Present: regular rate, normal rhythm, normal heart sounds. Absent: systolic murmur, diastolic murmur, rubs, gallop, clicks Neurological exam: Present: alert, oriented X3 Skin exam: Present: warm, dry, intact, normal color. Absent: rash Course Vital Signs 08/04/21 09:26 Temperature 98.9 F Pulse Rate 84 Respiratory 18 Rate Blood Pressure 112/80 O2 Sat by Pulse 97 Oximetry Medical Decision Making - Medical Decision Making 26-year-old with cough congestion patient had negative COVID-19 test x-rays unremarkable. Patient has been sick for 2 weeks ago treated for acute sinusitis/bronchitis. Return parameters were discussed. - Lab Data Lab Results 08/04/21 Range/Units 09:46 Coronavirus (PCR) Not Detected (Not Detectd) Disposition Clinical Impression: Sinusitis, Bronchitis Disposition: HOME SELF-CARE Condition: Stable Instructions (If sedation given, give patient instructions): Upper Respiratory Infection (ED) Additional Instructions: Please return to the Emergency Department if symptoms worsen or any other concerns. Prescriptions: Clarithromycin [Biaxin] 500 mg PO Q12HR #20 tablet predniSONE 50 mg PO DAILY #5 tab Is patient prescribed a controlled substance at d/c from ED?: No Referrals: Yaa Candelaria DO [Primary Care Provider] - 1-2 days Time of Disposition: 10:26
--- NOTE | 2021-08-04 09:54 | XR ---
EXAMINATION TYPE: XR chest 2V DATE OF EXAM: 08/04/2021 COMPARISON: NONE HISTORY: Chest pain TECHNIQUE: Frontal and lateral views of the chest are obtained. FINDINGS: There is no focal air space opacity. No evidence for pneumothorax. No pleural effusion. The cardiac silhouette size is within normal limits. The osseous structures are grossly intact. IMPRESSION: 1. No acute cardiopulmonary process.
[2021-08-04 10:36] VITALS: BP 128/78; PULSE 74; RESP 16; TEMP 98
== END 2021-08-04 10:35 | disposition home or self-care (01) ==
LOC: EC 09:14
DX: J40 Bronchitis, not specified as acute or chronic (principal); J32.9 Chronic sinusitis, unspecified; F17.200 Nicotine dependence, unspecified, uncomplicated; F12.90 Cannabis use, unspecified, uncomplicated; Z88.0 Allergy status to penicillin; Z20.822 Contact with and (suspected) exposure to COVID-19
CPT/HCPCS: 71046; 87635; 99285

== ENCOUNTER 2023-10-17 15:02 | Emergency (ER) | payer OTHER ==
--- NOTE | 2023-10-17 15:12 | ED ---
General Adult HPI <Adalberto Kothari - Last Filed: 10/17/23 15:09> <Neel Ramirez - Last Filed: 10/17/23 19:49> - General Stated complaint: poss Alcohol poisoning, [place] - History of Present Illness Initial comments: Quick note: 28 year old male states he was drinking heavily last night and stopped at 1 am. At 130 he developed nausea and vomiting. He hasn't been able to keep much down. (Adalberto Kothari) Dictation was produced using [employer] dictation software. please excuse any grammatical, word or spelling errors. Chief Complaint: 28-year-old male presents emergency Department with concerns of alcohol poisoning History of Present Illness: Is a 28-year-old male presents to the ER for concerns of alcohol intoxication. He was with his Friends last night for couple drinks. He ended up drinking a fifth of tequila. He does not drink daily. States that he's been thrown up since 1 AM this morning. Does complain of some mild abdominal pain. Denies any fever or constitutional symptoms. The ROS documented in this emergency department record has been reviewed and confirmed by me. Those systems with pertinent positive or negative responses have been documented in the HPI. All other systems are other negative and/or noncontributory. (Neel Ramirez) - Related Data Home Medications Medication Instructions Recorded Confirmed Phenyleph/Acetaminophn/Doxylam 1 cap PO Q4H PRN 08/04/21 08/04/21 [Vicks Dayquil-Nyquil Sinex Cap] Previous Rx's Medication Instructions Recorded Clarithromycin [Biaxin] 500 mg PO Q12HR #20 tablet 08/04/21 predniSONE 50 mg PO DAILY #5 tab 08/04/21 Cyclobenzaprine [Flexeril] 10 mg PO TID #20 tab 02/17/22 Ibuprofen [Motrin] 600 mg PO Q6HR PRN #20 tab 02/17/22 Allergies Allergy/AdvReac Type Severity Reaction Status Date / Time amoxicillin [Amoxicillin] Allergy Anaphylaxis Verified 10/17/23 15:46 Review of Systems ROS Other: All systems not noted in ROS Statement are negative. <Adalberto Kothari - Last Filed: 10/17/23 15:09> ROS Other: All systems not noted in ROS Statement are negative. <Neel Ramirez - Last Filed: 10/17/23 19:49> ROS Statement: Those systems with pertinent positive or pertinent negative responses have been documented in the HPI. Past Medical History Past Medical History: Asthma, GERD/Reflux Additional Past Medical History / Comment(s): right hand fracture X3. hiatal hernia. exercise induced asthma. Last Myocardial Infarction Date:: 2015 History of Any Multi-Drug Resistant Organisms: None Reported Past Surgical History: Appendectomy, Hernia Repair, Orthopedic Surgery Additional Past Surgical History / Comment(s): oral surgery, right hand surgery and has "a metal plate and 54 screws " in it. colonoscopy/egd Past Anesthesia/Blood Transfusion Reactions: Previous Problems w/ Anesthesia Additional Past Anesthesia/Blood Transfusion Reaction / Comment(s): Patients mo ther states he had a reaction to anesthesia and had to continue to come back to hospital for an IV. Past Psychological History: ADD/ADHD, Anxiety, Depression, PTSD Smoking Status: Current every day smoker Past Alcohol Use History: Occasional Past Drug Use History: Marijuana - Past Family History Mother History Unknown: Yes Additional Family Medical History / Comment(s): Mother states depression, bipolar disorder, and asthma. Sister(s) History Unknown: Yes Additional Family Medical History / Comment(s): Mother states, migraines, depression, and ADHD. <Adalberto Kothari - Last Filed: 10/17/23 15:09> General Exam <Adalberto Kothari - Last Filed: 10/17/23 15:09> <Neel Ramirez - Last Filed: 10/17/23 19:49> - General Exam Comments Initial Comments: Visual physical exam: patient appears anxious. Airways patent. No respiratory distress. Alert and oriented. (Adalberto Kothari) PHYSICAL EXAM: General Impression: Alert and oriented x3, not in acute distress HEENT: Normocephalic atraumatic, extra-ocular movements intact, pupils equal and reactive to light bilaterally, mucous membranes moist. Cardiovascular: Heart regular rate and rhythm Chest: Able to complete full sentences, no retractions, no tachypnea Abdomen: abdomen soft, non-tender, non-distended, no organomegaly Musculoskeletal: Pulses present and equal in all extremities, no peripheral edema Motor: no focal deficits noted Neurological: CN II-XII grossly intact, no focal motor or sensory deficits noted Skin: Intact with no visualized rashes Psych: Normal affect and mood (Neel Ramirez) Course Vital Signs 10/17/23 10/17/23 15:44 18:39 Temperature 98.2 F Pulse Rate 90 91 Respiratory 20 18 Rate Blood Pressure 125/86 131/89 O2 Sat by Pulse 100 100 Oximetry Medical Decision Making <Adalberto Kothari - Last Filed: 10/17/23 15:09> - Lab Data Result diagrams: 10/17/23 17:50 10/17/23 17:50 <Neel Ramirez - Last Filed: 10/17/23 19:49> - Medical Decision Making Verbally signed by Adalberto Kothari PAC 10/17/23 1512 (Adalberto Kothari) Was pt. sent in by a medical professional or institution (, [facility], [facility], urgent care, hospital, or fdc...) When possible be specific @ -No Did you speak to anyone other than the patient for history (EMS, parent, family, police, friend...)? What history was obtained from this source @ -No Did you review nursing and triage notes (agree or disagree)? Why? @ -I reviewed and agree with nursing and triage notes Were old charts reviewed (outside hosp., previous admission, EMS record, old EKG, old radiological studies, urgent care reports/EKG's, fdc records)? Report findings @ -No old charts were reviewed Differential Diagnosis (chest pain, altered mental status, abdominal pain women, abdominal pain men, vaginal bleeding, musculoskeletal, weakness, fever, dyspnea, syncope, headache, dizziness, GI bleed, back pain, seizure, CVA, palpatations, mental health)? @ -not applicable EKG interpreted by me (3pts min.). @ -None done X-rays interpreted by me (1pt min.). @ -None done CT interpreted by me (1pt min.). @ -None done U/S interpreted by me (1pt. min.). @ -None done What testing was considered but not performed or refused? (CT, X-rays, U/S, labs)? Why? @ -None What meds were considered but not given or refused? Why? @ -None Did you discuss the management of the patient with other professionals (professionals i.e. , [facility], [facility], lab, RT, psych nurse, licensed clinical social worker, patient care assistant, teacher, landcare officer, rn case manager)? Give summary @ -No Was smoking cessation discussed for >3mins.? @ -No Was critical care preformed (if so, how long)? @ -No Were there social determinants of health that impacted care today? How? (Homelessness, low income, unemployed, alcoholism, drug addiction, transportation, low edu. Level, literacy, decrease access to med. care, intermediate, rehab)? @ -No Was there de-escalation of care discussed even if they declined (Discuss DNR or withdrawal of care, Hospice)? DNR status @ -No What co-morbidities impacted this encounter? (DM, HTN, Smoking, COPD, CAD, Cancer, CVA, ARF, Chemo, Hep., AIDS, mental health diagnosis, sleep apnea, morbid obesity)? @ -None Was patient admitted / discharged? Hospital course, mention meds given and route, prescriptions, significant lab abnormalities, going to OR and other pertinent info. @ -28-year-old male presents to the ER after having drank lots of alcohol yesterday. All signs upon arrival are within acceptable limits. Patient will. Bedside. Laboratory evaluation shows mild leukocytosis 17.6. Rest of labs w ithin acceptable limits. Lipase normal. Serum alcohol is negative. Patient given IV fluids and antiemetics with improvement condition. Patient be discharged. Undiagnosed new problem with uncertain prognosis? @ -No Drug Therapy requiring intensive monitoring for toxicity (Heparin, Nitro, Insulin, Cardizem)? @ -No Were any procedures done? @ -No Diagnosis/symptom? Acute, or Chronic, or Acute on Chronic? Uncomplicated (without systemic symptoms) or Complicated (systemic symptoms)? @ -Nausea and vomiting Side effects of treatment? @ -No Exacerbation, Progression, or Severe Exacerbation? @ -No Poses a threat to life or bodily function? How? (Chest pain, [place], VA, pneumonia, PE, COPD, DKA, ARF, appy, cholecystitis, CVA, Diverticulitis, Homicidal, Suicidal, threat to staff... and all critical care pts) @ -No (Neel Ramirez) - Lab Data Lab Results 10/17/23 10/17/23 Range/Units 17:50 17:50 WBC 17.6 H (3.8-10.6) k/uL RBC 5.30 (4.30-5.90) m/uL Hgb 16.6 (13.0-17.5) gm/dL Hct 48.8 (39.0-53.0) % MCV 92.1 (80.0-100.0) fL MCH 31.3 (25.0-35.0) pg MCHC 34.0 (31.0-37.0) g/dL RDW 12.6 (11.5-15.5) % Plt Count 328 (150-450) k/uL MPV 7.6 Neutrophils % 91 % Lymphocytes % 6 % Monocytes % 2 % Eosinophils % 1 % Basophils % 0 % Neutrophils # 15.9 H (1.3-7.7) k/uL Lymphocytes # 1.1 (1.0-4.8) k/uL Monocytes # 0.3 (0-1.0) k/uL Eosinophils # 0.1 (0-0.7) k/uL Basophils # 0.0 (0-0.2) k/uL Sodium 142 (137-145) mmol/L Potassium 4.3 (3.5-5.1) mmol/L Chloride 104 (98-107) mmol/L Carbon Dioxide 19 L (22-30) mmol/L Anion Gap 19 mmol/L BUN 7 L (9-20) mg/dL Creatinine 0.67 (0.66-1.25) mg/dL Est GFR (CKD-EPI)AfAm >90 (>60 ml/min/1.73 sqM) Est GFR (CKD-EPI)NonAf >90 (>60 ml/min/1.73 sqM) Glucose 106 H (74-99) mg/dL Calcium 9.8 (8.4-10.2) mg/dL Magnesium 1.7 (1.6-2.3) mg/dL Total Bilirubin 0.4 (0.2-1.3) mg/dL AST 41 (17-59) U/L ALT 87 H (4-49) U/L Alkaline Phosphatase 73 (38-126) U/L Total Protein 8.7 H (6.3-8.2) g/dL Albumin 5.4 H (3.5-5.0) g/dL Lipase 37 (23-300) U/L Serum Alcohol <10 mg/dL Disposition <Kothari,Adalberto - Last Filed: 10/17/23 15:09> Is patient prescribed a controlled substance at d/c from ED?: No Time of Disposition: 19:49 <Neel Ramirez - Last Filed: 10/17/23 19:49> Clinical Impression: Nausea and vomiting Disposition: HOME SELF-CARE Condition: Good Instructions (If sedation given, give patient instructions): Acute Nausea and Vomiting (ED) Referrals: Yaa Candelaria DO [Primary Care Provider] - 1-2 days
[2023-10-17 15:48] VITALS: TEMP 98.2
[2023-10-17] MEDS ORDERED: SODIUM CHLORIDE 0.9% 1,000 ML IV STA ×2 (17:32→18:16)
[2023-10-17] MEDS ORDERED: ONDANSETRON 4 MG/2 ML VIAL IVP STA (17:35)
[2023-10-17 17:59] LABS: Basophils % (A) 0 %; Eosinophils # (A) 0.1 k/uL (0-0.7); Eosinophils % (A) 1 %; HCT 48.8 % (39.0-53.0); HGB 16.6 gm/dL (13.0-17.5); Lymphocytes # (A) 1.1 k/uL (1.0-4.8); Lymphocytes % (A) 6 %; MCH 31.3 pg (25.0-35.0); MCV 92.1 fL (80.0-100.0); Mean Platelet Volume 7.6; Monocytes # (A) 0.3 k/uL (0-1.0); Monocytes % (A) 2 %; Neutrophils # (A) 15.9 k/uL (1.3-7.7); Neutrophils % (A) 91 %; Platelet Count 328 k/uL (150-450); RDW 12.6 % (11.5-15.5); WBC 17.6 k/uL (3.8-10.6)
[2023-10-17 18:14] LABS: ALT 87 U/L (4-49); AST 41 U/L (17-59); African American GFR (CKD) >90 (>60 ml/min/1.73 sqM); Albumin 5.4 g/dL (3.5-5.0); Alcohol <10 mg/dL; Alkaline Phosphatase 73 U/L (38-126); Anion Gap 19 mmol/L; Blood Urea Nitrogen 7 mg/dL (9-20); Calcium 9.8 mg/dL (8.4-10.2); Carbon Dioxide 19 mmol/L (22-30); Chloride 104 mmol/L (98-107); Glucose 106 mg/dL (74-99); Lipase 37 U/L (23-300); Magnesium 1.7 mg/dL (1.6-2.3); Non-African American GFR(CKD) >90 (>60 ml/min/1.73 sqM); Potassium 4.3 mmol/L (3.5-5.1); Sodium 142 mmol/L (137-145); Total Bilirubin 0.4 mg/dL (0.2-1.3); Total Protein 8.7 g/dL (6.3-8.2)
[2023-10-17 20:06] VITALS: BP 120/81; PULSE 80; RESP 19
== END 2023-10-17 20:15 | disposition home or self-care (01) ==
LOC: EC 15:02
DX: R11.2 Nausea with vomiting, unspecified (principal); F17.200 Nicotine dependence, unspecified, uncomplicated; F12.90 Cannabis use, unspecified, uncomplicated; J45.909 Unspecified asthma, uncomplicated; Z88.0 Allergy status to penicillin; Z86.59 Personal history of other mental and behavioral disorders
CPT/HCPCS: 36415; 80053; 83690; 83735; 85025; 99284; 96374; 96361 ×2; G0480; J2405; 80320

== ENCOUNTER 2024-05-08 14:05 | Emergency (ER) | payer OTHER ==
[2024-05-08 14:27] VITALS: RESP 18
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
[2024-05-08 16:22] LABS: Basophils % (A) 0 %; Eosinophils # (A) 0.1 k/uL (0-0.7); Eosinophils % (A) 1 %; HCT 44.9 % (39.0-53.0); HGB 14.9 gm/dL (13.0-17.5); Lymphocytes # (A) 1.8 k/uL (1.0-4.8); Lymphocytes % (A) 20 %; MCHC 33.1 g/dL (31.0-37.0); MCV 93.6 fL (80.0-100.0); Mean Platelet Volume 7.6; Monocytes # (A) 0.5 k/uL (0-1.0); Monocytes % (A) 5 %; Neutrophils # (A) 6.7 k/uL (1.3-7.7); Neutrophils % (A) 73 %; Platelet Count 306 k/uL (150-450); RDW 13.1 % (11.5-15.5); WBC 9.2 k/uL (3.8-10.6)
[2024-05-08] MEDS: ORPHENADRINE 30 MG/ML 2 ML VIAL IVP STA (16:28)
[2024-05-08] MEDS: METOCLOPRAMIDE 5 MG/ML 2 ML VIAL IVP STA (16:29)
[2024-05-08 16:30] LABS: ALT 43 U/L (4-49); AST 37 U/L (17-59); African American GFR (CKD) >90 (>60 ml/min/1.73 sqM); Albumin 4.9 g/dL (3.5-5.0); Alkaline Phosphatase 67 U/L (38-126); Anion Gap 8 mmol/L; Blood Urea Nitrogen 7 mg/dL (9-20); Calcium 9.4 mg/dL (8.4-10.2); Carbon Dioxide 23 mmol/L (22-30); Chloride 110 mmol/L (98-107); Glucose 80 mg/dL (74-99); Non-African American GFR(CKD) >90 (>60 ml/min/1.73 sqM); Sodium 141 mmol/L (137-145); Total Bilirubin 0.8 mg/dL (0.2-1.3); Total Protein 7.6 g/dL (6.3-8.2)
[2024-05-08] MEDS: KETOROLAC 15 MG/ML 1 ML VIAL IVP STA ×2 (16:31→18:57)
[2024-05-08] MEDS: SODIUM CHLORIDE 0.9% 1,000 ML IV STA (16:31)
[2024-05-08] MEDS: diphenhydrAMINE 50 MG/ML 1 ML VIAL IVP STA (16:44)
[2024-05-08] MEDS: DEXAMETHASONE SOD PHOSPHATE 10 MG/ML 1 ML VIAL IVP STA (16:44)
--- NOTE | 2024-05-08 16:58 | CT ---
EXAMINATION TYPE: CT brain cspine wo con CT DLP: 1346.5 mGycm, Automated exposure control for dose reduction was used. DATE OF EXAM: 05/08/2024 4:43 PM COMPARISON: 10/21/2014 CLINICAL INDICATION:Male, 29 years old with history of Head injury; dizziness TECHNIQUE: Brain: Multiple axial CT images of the brain were obtained without IV contrast. Cspine: Axial CT images from the skull base to the inferior aspect of T2 we obtained without intraven ous contrast. Coronal and sagittal reformatted images were also reviewed. . FINDINGS: Brain: Extra-axial spaces: No abnormal extra-axial fluid collections. Ventricular system: Within normal limits Cerebral parenchyma: No acute intraparenchymal hemorrhage or mass effect. The albright-white junction is well differentiated. Cerebellum: Unremarkable. Mass effect: No evidence of midline shift. Intracranial vasculature: unremarkable Soft tissues: Normal. Calvarium/osseous structures: No depressed skull fracture. Paranasal sinuses and mastoid air cells: Clear. Visualized orbits: Orbital contents are intact. Cervical spine: Fracture: None. Osseous structures: Unremarkable Vertebral alignment: Within normal limits. Spinal canal/Neural Foramina: No evidence of significant spinal canal narrowing. No evidence for sign ificant neural foraminal stenosis. Neck soft tissues: Prevertebral soft tissues are within normal limits. Other: The airway is patent. The lung apices are clear. IMPRESSION: 1. No acute intracranial process. 2. No evidence of cervical spine fracture.
[2024-05-08] MEDS: ASPIRIN-ACET-CAFF 250-250-65MG 1 EACH TAB PO STA (18:57)
[2024-05-08 18:59] VITALS: BP 114/73; PULSE 66; TEMP 97.9
== END 2024-05-08 19:03 | disposition home or self-care (01) ==
LOC: EC 14:05
DX: S09.90XA Unspecified injury of head, initial encounter (principal); R42 Dizziness and giddiness; F17.290 Nicotine dependence, other tobacco product, uncomplicated; Z88.0 Allergy status to penicillin; Z88.8 Allergy status to other drugs, medicaments and biological substances; Z91.041 Radiographic dye allergy status; W22.8XXA Striking against or struck by other objects, initial encounter
CPT/HCPCS: 36415; 93005; 80053; 84484; 85025; 72125; 70450; 99284; 96374; 96375 ×4; 96376; 96361 ×2; J1200; J1100; J2360; J2765; J1885